=== PATIENT | male | born 1985 | race Caucasian/White ===

== ENCOUNTER 2022-08-26 19:17 | Emergency (ER) | payer BC, SELFPAY ==
--- NOTE | ~2022-08-26 | XR_ITS ---
EXAMINATION: XR KNEE, LEFT CLINICAL INFORMATION: Pain and swelling COMPARISON: None TECHNIQUE: Four views of the left knee. FINDINGS: Moderate volume suprapatellar joint effusion. No acute osteoporotic. No fracture dislocation. No focal bone lesion. XR/XR knee LT 4V IMPRESSION: Moderate volume suprapatellar joint effusion. No acute osseous abnormality.
--- NOTE | 2022-08-26 20:00 | ED_ITS ---
HPI - Extremity Injury (Lower) General Chief Complaint: Extremity Injury, Lower <Yen Fair CNP - Last Filed: 08/26/22 20:04> Stated Complaint: left knee swollen <Yen Fair CNP - Last Filed: 08/26/22 20:04> Time Seen by Provider: 08/26/22 21:32 <Yen Fair CNP - Last Filed: 08/26/22 20:04> Source: patient <ELÍAS Mckenzie - Last Filed: 08/27/22 01:17> Mode of arrival: ambulatory <ELÍAS Mckenzie Last Filed: 08/27/22 01:17> Limitations: no limitations <ELÍAS Mckenzie Last Filed: 08/27/22 01:17> History of Present Illness HPI Narrative: This is a 37-year-old male without significant medical history presenting to the emergency department with left knee pain, swelling, 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 Patient tells me he has full range of motion to that knee however uncomfortable due to pressure. 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 He has been taking Tylenol at home for pain with little to no relief. This is never happened to him before. Denies blunt trauma to the knee. Patient denies fevers, chills, rash overlying the affected joint, numbness, tingling, chest pain, shortness of breath, lower extremity swelling. <ELÍAS Mckenzie Last Filed: 08/27/22 01:17> Related Data Home Medications: Previous Rx's Medication Instructions Recorded ketorolac 10 mg tablet 10 mg PO TID PRN pain 5 days #15 08/26/22 tabs prednisone 20 mg tablet 40 mg PO DAILY 5 days #10 tabs 08/26/22 <Yen Fair CNP - Last Filed: 08/26/22 20:04> Allergies/Adverse Reactions: Allergies Allergy/AdvReac Type Severity Reaction Status Date / Time No Known Allergies Allergy Verified 08/26/22 20:01 <Yen Fair CNP - Last Filed: 08/26/22 20:04> Review of Systems Review of Systems: Constitutional : No Weight loss, No Fever, No Chills, No Fatigue, No Malaise ENT/Mouth : No sore throat, No Rhinorrhea Eyes: No Eye Pain, No Swelling, No Redness Cardiovascular : No Chest Pain, No SOB, No Dyspnea on Exertion, No Orthopnea, No Edema, No Palpitations Respiratory : No Cough, No Sputum, No Wheezing Gastrointestinal : No Nausea, No Vomiting, No Diarrhea, No Constipation, No abdominal Pain, No Hematochezia, No Melena Genitourinary : No Dysuria, No Urinary Frequency, No Hematuria, Musculoskeletal : + joint pain, No Myalgias, + Joint Swelling Skin : No Skin Lesions, No rash Neuro : No Weakness, No Numbness, No Dizziness, No Headache Psych : No Anxiety/Panic, No Depression All other systems reviewed and are negative <ELÍAS Mckenzie - Last Filed: 08/27/22 01:17> Yes all other systems are reviewed and are negative <ELÍAS Mckenzie - Last Filed: 08/27/22 01:17> [facility] Past Medical History Attestation statement: The following information was validated with the patient. <ELÍAS Mckenzie - Last Filed: 08/27/22 01:17> Source: old records reviewed and nursing notes reviewed <ELÍAS Mckenzie - Last Filed: 08/27/22 01:17> Social History Social History: Social History Advance Directives: No Advance Directives Information Provided: Yes <Yen Fair CNP - Last Filed: 08/26/22 20:04> Physical Exam Vital Signs: Vital Signs: Last Vital Signs Temp 98.7 F 08/26/22 23:59 Pulse 68 08/26/22 23:59 Resp 16 08/26/22 23:59 BP 114/67 08/26/22 23:59 Pulse Ox 98 08/26/22 23:59 O2 Del Method 08/26/22 23:59 BMI result Body Mass Index 25.8 <Yen Fair CNP - Last Filed: 08/26/22 20:04> Vital Signs: Last Vital Signs Temp 98.7 F 08/26/22 23:59 Pulse 68 08/26/22 23:59 Resp 16 08/26/22 23:59 BP 114/67 08/26/22 23:59 Pulse Ox 98 08/26/22 23:59 O2 Del Method 08/26/22 23:59 BMI result Body Mass Index 25.8 vss, patient slightly tachycardic likely secondary to pain <ELÍAS Mckenzie - Last Filed: 08/27/22 01:17> Appearance: Alert.? Oriented X3.? No acute distress.? Head: Normocephalic, atraumatic, no step-offs or deformities Eyes: Pupils equal, round and reactive to light.? CVS: Normal heart rate and rhythm.? Pulses normal.? Respiratory: No respiratory distress.? Breath sounds normal.? Abdomen: Soft and nontender.? Skin: Skin warm and dry.? Normal skin color.? Normal skin turgor.? Extremities: No lower extremity edema.? No calf ttp. 5/5 strength to bilateral upper and lower extremities. 2+ popliteal pulses equal bilateral. Full range of motion to bilateral knees, slight discomfort with range of motion of left knee however no overlying skin changes, erythema or warmth bilaterally. There is a large left supra patellar joint effusion noted. Normal right knee. Neuro: Oriented X 3.? No motor deficit.? No sensory deficit. CN 2-12 intact <ELÍAS Mckenzie - Last Filed: 08/27/22 01:17> Course Course Course Narrative: This is an RME: Additional HPI, ROS, PE not included below will be deferred to primary provider. Patient is a 37-year-old male who presents emergency department for evaluation of left knee swelling x 1 week. 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 Has trialed Tylenol without significant improvement. He continues to have pain that is exacerbated with movement, stair climbing. No overt injury. Denies URI symptoms, fever, chills. Plan: XR left knee <Yen Fair CNP - Last Filed: 08/26/22 20:04> Reevaluation(s) Reevaluation #1: Patient's CBC without leukocytosis. Normocytic anemia noted, no reports of bleeding. Chemistry with no acute electrolyte abnormalities requiring intervention. Knee aspiration will be done at this time with at the bedside. Patient gave me verbal consent and verbalizes risks and benefits. Synovial fluid analysis will be obtained and sent for further evaluation to the lab. <ELÍAS Mckenzie - Last Filed: 08/27/22 01:17> Time: 23:20 <ELÍAS Mckenzie - Last Filed: 08/27/22 01:17> Reevaluation #2: Joint aspiration was done, using local anesthesia with lidocaine, 80 cc of straw/cloudy synovial fluid removed, patient had a vasovagal episode secondary to pain during the procedure however no complications. A pressure dressing was applied overlying the left knee joint. <ELÍAS Mckenzie - Last Filed: 08/27/22 01:17> Time: 00:24 <ELÍAS Mckenzie - Last Filed: 08/27/22 01:17> Reevaluation #3: Synovial fluid analysis unremarkable. No signs of septic joint. Will discharge patient home on prednisone, Toradol. Will have him follow-up with the orthopedic team. Educated patient on diagnosis and treatment plan, answered all question, patient verbalizes understanding. At this time patient will be discharged home, advised to return with new or worsening symptoms. Educated on worrisome signs and symptoms and when to return. At this time I feel comfortable discharge home. <ELÍAS Mckenzie - Last Filed: 08/27/22 01:17> Time: 01:17 <ELÍAS Mckenzie - Last Filed: 08/27/22 01:17> Medications Administered Discontinued Medications Generic Name Dose Route Start Last Admin Trade Name Freq PRN Reason Stop Dose Admin Ibuprofen 600 mg 08/26/22 20:06 08/26/22 20:20 Ibuprofen 600 Mg Tablet PO 08/26/22 20:07 600 mg ONCE ONE Administration Ketorolac Tromethamine 30 mg 08/26/22 23:18 08/27/22 00:54 Ketorolac Tromethamine 15 Mg/Ml Vial IM 08/26/22 23:19 30 mg ONCE ONE Administration Lidocaine HCl 20 ml 08/26/22 23:13 08/27/22 00:55 Lidocaine Hcl 1 % 20 Ml Vial SUBCUT 08/26/22 23:14 20 ml ONCE ONE Administration <Yen Fair CNP - Last Filed: 08/26/22 20:04> Medications Administered Discontinued Medications Generic Name Dose Route Start Last Admin Trade Name Linda PRN Reason Stop Dose Admin Ibuprofen 600 mg 08/26/22 20:06 08/26/22 20:20 Ibuprofen 600 Mg Tablet PO 08/26/22 20:07 600 mg ONCE ONE Administration Ketorolac Tromethamine 30 mg 08/26/22 23:18 08/27/22 00:54 Ketorolac Tromethamine 15 Mg/Ml Vial IM 08/26/22 23:19 30 mg ONCE ONE Administration Lidocaine HCl 20 ml 08/26/22 23:13 08/27/22 00:55 Lidocaine Hcl 1 % 20 Ml Vial SUBCUT 08/26/22 23:14 20 ml ONCE ONE Administration <ELÍAS Mckenzie - Last Filed: 08/27/22 01:17> Medical Decision Making Medical Decision Making MDM Narrative: 37-year-old male presents with left knee pain and swelling x1 week progressively worsening. No inciting trauma. Denies fevers and chills Physical exam significant for No lower extremity edema.? No calf ttp. 5/5 strength to bilateral upper and lower extremities. 2+ popliteal pulses equal bilateral. Full range of motion to bilateral knees, slight discomfort with range of motion of left knee however no overlying skin changes, erythema or warmth bilaterally. There is a large left supra patellar joint effusion noted. Normal right knee. Concerns for suprapatellar joint effusion likely secondary to patient being on his knees often or inflammatory arthritis. Other differentials include gout and pseudogout. Unlikely septic joint or threatened limb. No signs of neurovascular compromise. Plan at this time imaging, basic labs. Patient will need a joint effusion. <ELÍAS Mckenzie Last Filed: 08/27/22 01:17> Differential Diagnosis Differential Diagnoses: The differential diagnosis associated with the presentation includes <ELÍAS Mckenzie - Last Filed: 08/27/22 01:17> Concerns for suprapatellar joint effusion likely secondary to patient being on his knees often or inflammatory arthritis. Other differentials include gout and pseudogout. Unlikely septic joint or threatened limb. No signs of neurovascular compromise. <ELÍAS Mckenzie - Last Filed: 08/27/22 01:17> Admission/Observation Consideration of admission/observation: Escalation of care including admission/observation considered <ELÍAS Mckenzie - Last Filed: 08/27/22 01:17> Lab Data MDM Lab Attestation statement: I reviewed the patient's lab results. <ELÍAS Mckenzie - Last Filed: 08/27/22 01:17> Result Diagrams: 08/26/22 22:48 08/26/22 22:48 <Yen Fair CNP - Last Filed: 08/26/22 20:04> Labs: Lab Results 08/26/22 08/26/22 08/27/22 Range/Units 22:48 22:48 00:24 WBC 8.8 (4.8-10.8) X10*3/uL RBC 4.53 L (4.60-5.80) X10*6/uL Hgb 13.3 L (14.0-18.0) g/dl Hct 40.3 L (42.0-52.0) % MCV 89.0 (80.0-98.0) fL MCH 29.4 (27.0-33.0) pg MCHC 33.0 (31.0-36.0) g/dl RDW 13.0 (11.0-16.0) % Plt Count 268 (160-400) X10*3/uL MPV 9.5 (9.4-12.4) fL Immature Gran % (Auto) 0.5 H (0.0-0.4) % Neut % (Auto) 60.0 (45-73) % Lymph % (Auto) 28.2 (20-40) % Phillips % (Auto) 10.2 (2-11) % Eos % (Auto) 0.8 (0-4) % Baso % (Auto) 0.3 (0-2) % Lymph # (Auto) 2.5 (1.2-4.9) X10*3/uL Phillips # (Auto) 0.9 (0.1-1.2) X10*3/uL Eos # (Auto) 0.1 (0.0-0.4) X10*3/uL Baso # (Auto) 0.0 (0.0-0.2) X10*3/uL Abs Immat Gran (auto) 0.04 H (0.00-0.03) X10*3/uL Absolute Neuts (auto) 5.3 (2.0-8.3) x10*3/uL Absolute Nucleated RBC 0.000 (0.0-0.012) X10*3/uL Nucleated RBC % (auto) 0.0 (0.0-0.2) /100WBC Sodium 141 (135-145) mmol/L Potassium 3.8 (3.3-5.1) mmol/L Chloride 106 (96-108) mmol/L Carbon Dioxide 26 (22-29) mmol/L Anion Gap 13 (12-20) BUN 16 (9-16) mg/dL Creatinine 0.89 (0.5-1.4) mg/dL Estim Creat Clear Calc 112.0 Estimated GFR > 60 Random Glucose 101 (60-115) mg/dL Calcium 9.2 (8.4-10.2) mg/dL Total Bilirubin 0.4 (0.0-1.0) mg/dL AST 35 (5-37) U/L ALT 52 H (0-40) U/L Alkaline Phosphatase 65 (39-117) U/L Total Protein 7.3 (6.5-8.0) g/dL Albumin 4.2 (3.5-5.0) g/dL Synovial Source L knee Synovial WBC 37.490 X10*3/uL Synovial RBC < 0.002 X10*6/uL Synovial Neutrophils 83 % Synovial Lymphocytes 9 % Synovial Monocytes 8 % <Yen Fair, [employer] - Last Filed: 08/26/22 20:04> Lab Results 08/26/22 08/26/22 08/27/22 Range/Units 22:48 22:48 00:24 WBC 8.8 (4.8-10.8) X10*3/uL RBC 4.53 L (4.60-5.80) X10*6/uL Hgb 13.3 L (14.0-18.0) g/dl Hct 40.3 L (42.0-52.0) % MCV 89.0 (80.0-98.0) fL MCH 29.4 (27.0-33.0) pg MCHC 33.0 (31.0-36.0) g/dl RDW 13.0 (11.0-16.0) % Plt Count 268 (160-400) X10*3/uL MPV 9.5 (9.4-12.4) fL Immature Gran % (Auto) 0.5 H (0.0-0.4) % Neut % (Auto) 60.0 (45-73) % Lymph % (Auto) 28.2 (20-40) % Phillips % (Auto) 10.2 (2-11) % Eos % (Auto) 0.8 (0-4) % Baso % (Auto) 0.3 (0-2) % Lymph # (Auto) 2.5 (1.2-4.9) X10*3/uL Phillips # (Auto) 0.9 (0.1-1.2) X10*3/uL Eos # (Auto) 0.1 (0.0-0.4) X10*3/uL Baso # (Auto) 0.0 (0.0-0.2) X10*3/uL Abs Immat Gran (auto) 0.04 H (0.00-0.03) X10*3/uL Absolute Neuts (auto) 5.3 (2.0-8.3) x10*3/uL Absolute Nucleated RBC 0.000 (0.0-0.012) X10*3/uL Nucleated RBC % (auto) 0.0 (0.0-0.2) /100WBC Sodium 141 (135-145) mmol/L Potassium 3.8 (3.3-5.1) mmol/L Chloride 106 (96-108) mmol/L Carbon Dioxide 26 (22-29) mmol/L Anion Gap 13 (12-20) BUN 16 (9-16) mg/dL Creatinine 0.89 (0.5-1.4) mg/dL Estim Creat Clear Calc 112.0 Estimated GFR > 60 Random Glucose 101 (60-115) mg/dL Calcium 9.2 (8.4-10.2) mg/dL Total Bilirubin 0.4 (0.0-1.0) mg/dL AST 35 (5-37) U/L ALT 52 H (0-40) U/L Alkaline Phosphatase 65 (39-117) U/L Total Protein 7.3 (6.5-8.0) g/dL Albumin 4.2 (3.5-5.0) g/dL Synovial Source L knee Synovial WBC 37.490 X10*3/uL Synovial RBC < 0.002 X10*6/uL Synovial Neutrophils 83 % Synovial Lymphocytes 9 % Synovial Monocytes 8 % <ELÍAS Mckenzie - Last Filed: 08/27/22 01:17> Independent Interpretation I performed an independent interpretation of an: Plain X-Ray (XR/XR knee LT 4V IMPRESSION: Moderate volume suprapatellar joint effusion. No acute osseous abnormality. ) <ELÍAS Mckenzie - Last Filed: 08/27/22 01:17> Radiology Impression Discussion of test interpretation with radiology: I have reviewed the radiologist's reading. <ELÍAS Mckenzie - Last Filed: 08/27/22 01:17> Prescription Management I considered prescription management with: Pain Medication <ELÍAS Mckenzie - Last Filed: 08/27/22 01:17> Core Measures AMI core measures followed: Yes <ELÍAS Mcknezie - Last Filed: 08/27/22 01:17> Measure exclusions: not indicated <ELÍAS Mckenzie - Last Filed: 08/27/22 01:17> Critical Care Time Critical Care Time Critical Care Time: No <ELÍAS Mckenzie - Last Filed: 08/27/22 01:17> Discharge Plan Discharge Clinical Impression: Effusion, left knee <Yen Fair CNP - Last Filed: 08/26/22 20:04> Patient Disposition: Home, Self-Care <Yen Fair CNP - Last Filed: 08/26/22 20:04> Additional Instructions: Take your medications as prescribed. If you were prescribed antibiotics today, it is important that you take your medication to their entirety, do not skip any doses, do not finish them early. Follow-up with your primary care provider this week. Follow-up with orthopedics. Return to the emergency department with new or worsening symptoms. Such as fevers, chills, chest pain, shortness of breath, nausea, vomiting, dizziness, headache, vision changes, lethargy, numbness, tingling, pain with movement of left knee In case of emergency call 911 <Yen Fair CNP - Last Filed: 08/26/22 20:04> Prescriptions: New prednisone 20 mg tablet 40 mg PO DAILY 5 Days Qty: 10 0RF ketorolac 10 mg tablet 10 mg PO TID PRN (Reason: pain) 5 Days Qty: 15 0RF Rx Instructions: Tolerated IM in the department <Yen Fair CNP - Last Filed: 08/26/22 20:04> Referrals: [facility] [place] [facility] Surgeons [Provider Group] - 2 days Physician,None [Primary Care Provider] - 2 days <eYn Fair CNP - Last Filed: 08/26/22 20:04> Stand Alone Forms: Work/School Release <Yen Fair CNP - Last Filed: 08/26/22 20:04>
[2022-08-26 20:01] VITALS: BP 150/84; PULSE 106; RESP 16; TEMP 37.3; O2SAT 99; BMI 25.8
[2022-08-26] MEDS: Ibuprofen 600 MG TABLET PO (20:20)
[2022-08-26 22:52] LABS: Basophils Percent Auto 0.3 % (0-2); Eosinophils Absolute Auto 0.1 X10*3/uL (0.0-0.4); Eosinophils Percent Auto 0.8 % (0-4); Hematocrit 40.3 % (42.0-52.0); Hemoglobin 13.3 g/dl (14.0-18.0); Imm Gran Abs Auto 0.04 X10*3/uL (0.00-0.03); Imm Gran Pct Auto 0.5 % (0.0-0.4); Lymphocytes Absolute Auto 2.5 X10*3/uL (1.2-4.9); Lymphocytes Percent Auto 28.2 % (20-40); MANUAL DIFF FLAG NO; Mean Corpuscular Hemoglobin 29.4 pg (27.0-33.0); Mean Platelet Volume 9.5 fL (9.4-12.4); Monocytes Absolute Auto 0.9 X10*3/uL (0.1-1.2); Monocytes Percent Auto 10.2 % (2-11); Neutrophils Absolute Auto 5.3 x10*3/uL (2.0-8.3); Platelet Count 268 X10*3/uL (160-400); Red Blood Count 4.53 X10*6/uL (4.60-5.80); White Blood Count 8.8 X10*3/uL (4.8-10.8)
[2022-08-26 23:12] LABS: Alanine Aminotransferase 52 U/L (0-40); Albumin Level 4.2 g/dL (3.5-5.0); Alkaline Phosphatase 65 U/L (39-117); Anion Gap 13 (12-20); Aspartate Amino Transferase 35 U/L (5-37); Bilirubin Total 0.4 mg/dL (0.0-1.0); Blood Urea Nitrogen 16 mg/dL (9-16); Calcium 9.2 mg/dL (8.4-10.2); Carbon Dioxide 26 mmol/L (22-29); Chloride 106 mmol/L (96-108); Estimated Glomerular Filt Rate > 60; Glucose Random 101 mg/dL (60-115); Potassium 3.8 mmol/L (3.3-5.1); Sodium 141 mmol/L (135-145); Total Protein 7.3 g/dL (6.5-8.0)
[2022-08-26 23:59] VITALS: BP 114/67; PULSE 68; RESP 16; TEMP 37.1; O2SAT 98
--- NOTE | 2022-08-27 00:25 | MHC.EDTECH ---
patient joint fluid collected and sent to lab .
[2022-08-27 00:30] LABS: Source Synovial Fluid L knee
[2022-08-27 00:53] LABS: MN% 13.3 %; PMN% 86.7 %
[2022-08-27 00:54] LABS: BF Shift QC OK YES; Man Diluent Bkgrd OK YES; RBC Synovial Fluid < 0.002 X10*6/uL
[2022-08-27] MEDS: Ketorolac Tromethamine 15 MG/ML VIAL 30 MG IM (00:54)
[2022-08-27] MEDS: Lidocaine HCl 1 % 20 ML VIAL SUBCUT (00:55)
[2022-08-27 01:08] LABS: Lymphocytes Synovial Fluid 9 %; Monocytes Synovial Fluid 8 %; Neutrophils Synovial Fluid 83 %
[2022-08-27] MEDS: Ondansetron ODT 4 MG TAB.RAPDIS TRANSLINGU (01:43)
--- NOTE | 2022-08-27 01:45 | PC.NURSE ---
medicated per Sep. Reviewed Discharge instructions with pt, pt verbalized understanding.
== END 2022-08-27 01:46 | disposition home or self-care (01) ==
PROVIDERS: Physician Assistant; Emergency Provider Emergency Medicine Emergency Medical Services
DX: M25.462 Effusion, left knee (principal); M25.562 Pain in left knee; R55 Syncope and collapse; R00.0 Tachycardia, unspecified; D64.9 Anemia, unspecified
CPT/HCPCS: 20610; 36415; 73564; 80053; 85025; 87070; 87073; 87205; 89051; 89060; 96372; 99284; 99285; J1885

== ENCOUNTER 2022-09-13 16:00 | Outpatient (REF) | payer BC, SELFPAY | END 2022-09-13 16:01 | disposition home or self-care (01) | LOC: HO.HOSX 16:00 | PROVIDERS: Visit Provider Physician Assistant | DX: Z13.89 Encounter for screening for other disorder (principal) ==

== ENCOUNTER 2023-07-12 10:29 | Emergency (ER) | payer SELFPAY ==
--- NOTE | ~2023-07-12 | XR_ITS ---
EXAMINATION: XR KNEE, RIGHT CLINICAL INFORMATION: Twisted and swollen COMPARISON: None available. TECHNIQUE: Four views of the right knee. FINDINGS: There is a moderate size suprapatellar joint effusion. The tricompartment joint space is maintained. No visible acute fracture, dislocation or subluxation. No bony erosive changes. XR/XR knee RT 4V IMPRESSION: Moderate suprapatellar joint effusion. No visible acute fracture or dislocation seen.
[2023-07-12 10:38] VITALS: BP 122/78; PULSE 79; RESP 18; TEMP 36.6; O2SAT 99; BMI 26.6
--- NOTE | 2023-07-12 13:09 | ED.GENADULT ---
HPI - General Adult General Chief complaint: Extremity Injury, Lower Stated complaint: R Knee Pain No Injury Time Seen by Provider: 07/12/23 15:00 Source: patient, RN notes reviewed and old records reviewed Mode of arrival: ambulatory History of Present Illness HPI narrative: 38-year-old male with no significant past medical history presenting to the ED complaining of right knee pain and swelling s/p twisting injury while shoveling on Tuesday. States twisted knee and then hit his knee on car. Reports increasing pain and decreased ROM. Denies injury to other area, numbness, tingling, weakness, fever Related Data Previous Rx's Medication Instructions Recorded ketorolac 10 mg tablet 10 mg PO TID PRN pain 5 days #15 08/26/22 tabs prednisone 20 mg tablet 40 mg (2 x 20 mg) PO DAILY 5 days 08/26/22 #10 tabs acetaminophen 500 mg tablet 500 mg PO Q6H PRN fever or pain 07/12/23 (Tylenol Extra Strength) #14 tabs ketorolac 10 mg tablet 10 mg PO TID PRN pain 5 days #15 07/12/23 tabs Allergies Allergy/AdvReac Type Severity Reaction Status Date / Time No Known Allergies Allergy Verified 07/12/23 10:38 Review of Systems Review of Systems: Constitutional: No Fever, No Chills ENT/Mouth: No Ear Pain, No Nasal Congestion, No Hoarseness, No sore throat, No Rhinorrhea, No Swallowing Difficulty Cardiovascular: No Chest Pain, No SOB Respiratory: No Cough Gastrointestinal: No Nausea, No Vomiting, No Diarrhea, No Constipation, No Abdominal pain Musculoskeletal: +joint pain, No Myalgias,+ Joint Swelling Skin: No Skin Lesions, No rash Neuro: No Weakness, No Numbness, No Paresthesias Yes all other systems are reviewed and are negative Constitutional: Constitutional: Reports as per [facility] Past Medical History Attestation statement: The following information was validated with the patient. Source: old records reviewed Onset Date is defined in the Problem List Problems that require an onset date and time if occurred within 24 hrs of arrival to the ED Aortic Dissection and Rupture; Neurologic impairment; Cardiopulmonary Arrest; Endotracheal Intubation; Insertion or Replacement of Mechanical Circulatory Assist Device Social History Social History Alcohol intake: current Alcohol intake frequency: does not drink Advance Directives: No Physical Exam ED Vital Signs: Vital Signs - 24 hr 07/12/23 10:38 Temperature 98 F Pulse Rate 79 Respiratory Rate 18 Blood Pressure 122/78 Pulse Oximetry 99 Oxygen Delivery Method Room Air BMI result Body Mass Index 26.6 Const General: cooperative, healthy appearing and no acute distress Orientation/consciousness: patient oriented x3 Limitations: no limitations HENMT Head: Yes normal to inspection and Yes atraumatic Ears: hearing grossly normal bilaterally General nose exam: Normal external nose present Face and sinus: Yes normal facial exam Eyes General: appearance normal, both eyes and all related structures EOM: EOMs intact bilaterally Neck Neck: Yes normal visual inspection and Yes no meningeal signs Resp Effort & Inspection: normal respiratory effort and no respiratory distress Auscultation: clear to auscultation bilaterally Cardio Rate: regular rate Heart sounds: S1 normal heart sound present and S2 normal heart sound present Skin Rashes: no rashes Wounds: no wounds Neuro General: patient oriented x3, tone normal and no meningeal signs Cranial nerves: Yes CN's II-XII intact bilaterally Gait exam (Neuro): Normal gait present Extrem Other: right knee with noted effusion & diffuse ttp. No erythema/warmth. +decreased ROM 2/2 pain/swelling. No pedal edema. NV intact distally Course Course Course Narrative: 12:45pm RME; patient reassessed at triage. X-ray showed joint effusion. Right knee slightly warm compared to left. May need arthrocentesis. Labs ordered. XR knee RT 4V IMPRESSION: Moderate suprapatellar joint effusion. No visible acute fracture or dislocation seen. > patient placed in knee immobilizer and supplied with crutches, recommended orthopedic follow-up -no leukocytosis. H&H stable. ESR/CRP elevated Results discussed with patient including worrisome signs and symptoms and strict return precautions, and when to return to the emergency department. They verbalized understanding and feel safe for discharge at this time. Medications Administered Discontinued Medications Generic Name Dose Route Start Last Admin Trade Name Freq PRN Reason Stop Dose Admin Ketorolac Tromethamine 30 mg 07/12/23 15:39 07/12/23 15:49 Ketorolac Tromethamine 30 Mg/Ml Vial IM 07/12/23 15:40 30 mg ONCE ONE Administration Medical Decision Making Medical Decision Making MDM Narrative: 38-year-old male with no significant past medical history presenting to the ED complaining of right knee pain and swelling s/p twisting injury while shoveling on Tuesday. On exam vital signs stable, NAD, nontoxic appearing, concern for traumatic hematoma/effusion vs meniscal/ligamental or tendon injury. Look rule out fracture. Low suspicion for septic joint/arthritis or DVT Due to injury/trauma arthrocentesis contraindicated Plan: Labs and x-ray ordered in triage Please refer to course for remaining clinical decision making, interpretation of labs/imaging results, and discussions with consultants and/or family members. Differential Diagnosis Differential Diagnoses: The differential diagnosis associated with the presentation includes As above Admission/Observation Consideration of admission/observation: Escalation of care including admission/observation considered Lab Data [facility] Lab Attestation statement: I reviewed the patient's lab results. 07/12/23 13:22 07/12/23 13:22 Labs: Lab Results 07/12/23 Range/Units 13:22 WBC 10.1 (4.8-10.8) X10*3/uL RBC 4.52 L (4.60-5.80) X10*6/uL Hgb 13.5 L (14.0-18.0) g/dl Hct 41.4 L (42.0-52.0) % MCV 91.6 (80.0-98.0) fL MCH 29.9 (27.0-33.0) pg MCHC 32.6 (31.0-36.0) g/dl RDW 12.7 (11.0-16.0) % Plt Count 288 (160-400) X10*3/uL MPV 9.5 (9.4-12.4) fL Immature Gran % (Auto) 0.5 H (0.0-0.4) % Neut % (Auto) 79.7 H (45-73) % Lymph % (Auto) 13.2 L (20-40) % [place] % (Auto) 6.0 (2-11) % Eos % (Auto) 0.3 (0-4) % Baso % (Auto) 0.3 (0-2) % Lymph # (Auto) 1.3 (1.2-4.9) X10*3/uL [place] # (Auto) 0.6 (0.1-1.2) X10*3/uL Eos # (Auto) 0.0 (0.0-0.4) X10*3/uL Baso # (Auto) 0.0 (0.0-0.2) X10*3/uL Abs Immat Gran (auto) 0.05 H (0.00-0.03) X10*3/uL Absolute Neuts (auto) 8.0 (2.0-8.3) x10*3/uL Absolute Nucleated RBC 0.000 (0.0-0.012) X10*3/uL Nucleated RBC % (auto) 0.0 (0.0-0.2) /100WBC ESR 25 H (0-15) MM/HR PT 14.1 H (11.1-13.3) SEC INR 1.2 H (0.9-1.1) APTT 30.4 (26.0-36.4) SEC Sodium 138 (135-145) mmol/L Potassium 3.8 (3.3-5.1) mmol/L Chloride 103 (96-108) mmol/L Carbon Dioxide 25 (22-29) mmol/L Anion Gap 14 (12-20) BUN 14 (9-16) mg/dL Creatinine 0.89 (0.5-1.4) mg/dL Estim Creat Clear Calc 111.0 Estimated GFR > 60 Random Glucose 162 H (60-115) mg/dL Uric Acid 5.1 (3.4-7.0) mg/dL Calcium 9.3 (8.4-10.2) mg/dL Total Bilirubin 0.6 (0.0-1.0) mg/dL AST 30 (5-37) U/L ALT 35 (0-40) U/L Alkaline Phosphatase 55 (39-117) U/L C-Reactive Protein 10.37 H (< or = 0.50) mg/dL Total Protein 8.2 H (6.5-8.0) g/dL Albumin 4.2 (3.5-5.0) g/dL Independent Interpretation I performed an independent interpretation of an: Plain X-Ray Radiology Impression Discussion of test interpretation with radiology: I have reviewed the radiologist's reading. External Record Review External record reviewed: Inpatient record, Office record, Outpatient record, Prior outpatient labs, Prior outpatient radiology, Primary care record and Outside ED record Tests considered The following testing was considered but not selected: As above Prescription Management I considered prescription management with: Pain Medication Discharge Plan Discharge Clinical Impression: Acute joint effusion Patient Disposition: Home, Self-Care Instructions: Swollen Knee Joint (ED) Additional Instructions: Your x-ray shows a moderate suprapatellar joint effusion. Your blood work shows elevation in inflammatory markers Wear knee immobilizer for compression and stability. Use crutches Follow-up with Orthopedics Ice, elevate, Toradol as an anti-inflammatory/pain medicine, take with food. Do not take both Toradol, ibuprofen/Motrin or Aleve as they are similar medications In addition take Tylenol If area begins to look infected, is red/warm return to the ED Prescriptions: New ketorolac 10 mg tablet 10 mg PO TID PRN (Reason: pain) 5 Days Qty: 15 0RF acetaminophen [Tylenol Extra Strength] 500 mg tablet 500 mg PO Q6H PRN (Reason: fever or pain) Qty: 14 0RF No Action prednisone 20 mg tablet 40 mg PO DAILY 5 Days Qty: 10 0RF ketorolac 10 mg tablet 10 mg PO TID PRN (Reason: pain) 5 Days Qty: 15 0RF Rx Instructions: Tolerated IM in the department Referrals: [facility] [Provider Group] Interventions: ED Discharge Assessment Last Done: 07/12/23 16:06 Discharge Date/Time: 07/12/23 16:06
[2023-07-12 13:28] LABS: MANUAL DIFF FLAG NO
[2023-07-12 13:33] LABS: Basophils Percent Auto 0.3 % (0-2); Eosinophils Percent Auto 0.3 % (0-4); Hematocrit 41.4 % (42.0-52.0); Hemoglobin 13.5 g/dl (14.0-18.0); Imm Gran Abs Auto 0.05 X10*3/uL (0.00-0.03); Imm Gran Pct Auto 0.5 % (0.0-0.4); Lymphocytes Absolute Auto 1.3 X10*3/uL (1.2-4.9); Lymphocytes Percent Auto 13.2 % (20-40); Mean Corpuscular HGB Conc 32.6 g/dl (31.0-36.0); Mean Corpuscular Hemoglobin 29.9 pg (27.0-33.0); Mean Corpuscular Volume 91.6 fL (80.0-98.0); Mean Platelet Volume 9.5 fL (9.4-12.4); Monocytes Absolute Auto 0.6 X10*3/uL (0.1-1.2); Neutrophils Percent Auto 79.7 % (45-73); Platelet Count 288 X10*3/uL (160-400); Red Blood Count 4.52 X10*6/uL (4.60-5.80); Red Cell Distribution Width 12.7 % (11.0-16.0); White Blood Count 10.1 X10*3/uL (4.8-10.8)
[2023-07-12 13:39] LABS: INTERNATIONAL NORM RATIO 1.2 (0.9-1.1); Prothrombin Time 14.1 SEC (11.1-13.3)
[2023-07-12 13:41] LABS: Partial Thromboplastin Time 30.4 SEC (26.0-36.4)
[2023-07-12 13:53] LABS: Alanine Aminotransferase 35 U/L (0-40); Albumin Level 4.2 g/dL (3.5-5.0); Alkaline Phosphatase 55 U/L (39-117); Anion Gap 14 (12-20); Aspartate Amino Transferase 30 U/L (5-37); Bilirubin Total 0.6 mg/dL (0.0-1.0); Blood Urea Nitrogen 14 mg/dL (9-16); C Reactive Protein 10.37 mg/dL (< or = 0.50); Calcium 9.3 mg/dL (8.4-10.2); Carbon Dioxide 25 mmol/L (22-29); Chloride 103 mmol/L (96-108); Estimated Glomerular Filt Rate > 60; Glucose Random 162 mg/dL (60-115); Potassium 3.8 mmol/L (3.3-5.1); Sodium 138 mmol/L (135-145); Total Protein 8.2 g/dL (6.5-8.0); Uric Acid 5.1 mg/dL (3.4-7.0)
[2023-07-12 14:08] LABS: Erythrocyte Sedimentation Rate 25 MM/HR (0-15)
[2023-07-12] MEDS: Ketorolac Tromethamine 30 MG/ML VIAL IM (15:49)
== END 2023-07-12 16:06 | disposition home or self-care (01) ==
PROVIDERS: Physician Assistant; Emergency Provider Emergency Medicine Emergency Medical Services
DX: M25.461 Effusion, right knee (principal); Z79.899 Other long term (current) drug therapy
CPT/HCPCS: 36415; 73564; 80053; 84550; 85025; 85610; 85652; 85730; 86140; 96372; 99283; 99284; J1885

== ENCOUNTER 2023-08-05 09:18 | Outpatient (REF) | payer SELFPAY | END 2023-08-05 09:19 | disposition home or self-care (01) | LOC: HO.HOSX 09:18 | PROVIDERS: Visit Provider Physician Assistant | DX: Z13.89 Encounter for screening for other disorder (principal) ==